=== PATIENT | female | born 1980 | race Caucasian/White ===

== ENCOUNTER 2025-06-04 13:00 | Emergency (ER) | payer BC ==
[2025-06-04] MEDS ORDERED: Sodium Chloride 0.9% 10 ML Syringe FLUSH PRN (13:11)
[2025-06-04] MEDS: methylPREDNISolone Sodium Succinate 125 MG/2 ML SDV IVPUSH ONE (13:21)
[2025-06-04] MEDS: diphenhydrAMINE 50 MG/ML SDV IVPUSH ONE (13:21)
== END 2025-06-04 14:50 | disposition home or self-care (01) ==
LOC: JD.ED 13:00
DX: L50.0 Allergic urticaria (principal); Z79.899 Other long term (current) drug therapy
CPT/HCPCS: 96374; 96375; 99283; A9270; J1200; J1308; J2919